=== PATIENT | female | born 1985 | race Caucasian/White ===

== ENCOUNTER 2018-05-21 20:24 | Emergency (ER) | payer MEDICAID, SELFPAY ==
[2018-05-21 20:25] VITALS: BP 119/74; PULSE 80; RESP 15; TEMP 36.9; O2SAT 98; BMI 19.7
--- NOTE | 2018-05-21 20:38 | CT_ITS ---
STUDY: CT ABDOMEN AND PELVIS WITHOUT CONTRAST REASON FOR EXAM: Female, 32 years old. Left flank and abdominal pain x2 days RADIATION DOSAGE (If Supplied By Facility): CTDIvol = ( 6.04 ) mGy, DLP = ( 282.37 ) mGycm TECHNIQUE: Transaxial images were obtained from the dome of the diaphragm to the symphysis pubis without oral contrast, and without intravenous contrast. Sagittal and coronal images were reconstructed. Individualized dose optimization techniques were used for this CT. COMPARISON: None. FINDINGS: The visualized lung bases are unremarkable. The visualized portions of the heart are within normal limits. Normal liver. There are surgical clips in the gallbladder fossa consistent with a prior cholecystectomy. Normal spleen. Normal pancreas. Normal bilateral adrenal glands. Normal right kidney. Normal left kidney. There is a large amount of fluid in the stomach. Normal small intestine. There is a moderate amount of colonic stool. There are surgical clips in the region of the appendix consistent with a prior appendectomy. Normal abdominal aorta. Normal inferior vena cava. Normal retroperitoneum. Normal urinary bladder. There is absence of the uterus consistent with a prior hysterectomy. There is a small umbilical hernia containing fat. Normal osseous structures. CT/Abdomen/Pelvis without Cont IMPRESSION: 1. Status post cholecystectomy. 2. Status post hysterectomy. 3. Status post appendectomy. 4. There is a large amount of fluid in the stomach and a moderate amount of colonic stool. 5. There is a small fat-containing umbilical hernia. 6. There is no evidence of nephro or ureterolithiasis, hydronephrosis, or hydroureter. 7. No free intra-abdominal or intrapelvic air, fluid, or inflammatory process is noted. Electronically Signed: Kishore Murphy MD at 22:25 EDT , Service support ,
[2018-05-21] MEDS: 0.9% Normal Saline 1,000 ML 100 ML IV (21:31)
[2018-05-21] MEDS: Ketorolac 15 MG/ML Vial IV (21:31)
[2018-05-21] MEDS: Ondansetron 4 MG/2 ML Vial IV (21:31)
[2018-05-21 21:35] LABS: Bacteria 0 SEEN /hpf (None Seen); Mucous, Urine 0 SEEN /hpf (<or=2+); Red Blood Cells-Urine 0 SEEN /hpf (0-5)
[2018-05-21 21:37] LABS: Color, Urine Yellow (Yellow); Glucose, Dipstick Normal (Normal); Ketone-Dipstick Negative (Negative); Leukocyte Esterase-Dipstick 25 /ul (Negative); Nitrite-Dipstick Negative (Negative); Occult Blood-Urine 10 /ul (Negative); Protein-Dipstick Negative (Negative); Urine Bilirubin Dipstick Negative (Negative); Urine Clarity Clear (Clear); Urine Urobilinogen Normal (Normal); Urine pH 6.5 (5.0 - 8.0)
[2018-05-21 21:40] LABS: Absolute Lymphocyte Count 3.62 X10^3/ul (0.83-4.51); Absolute Neutrophil Count 5.5 X10^3/uL (2.0-7.7); Basophil# 0.04 X10^3/uL; Basophil% 0.4 % (0-1); Eosinophil# 0.26 X10^3/uL; Eosinophils% 2.6 % (0-5); Hematocrit 36.8 % (37-47); Lymphocyte # 3.62 X10^3/ul (4.0); Lymphocyte % 36.4 % (19-41); Mean Corp Hgb Conc 32.6 g/gl (32-36); Mean Corpuscular Hgb 30.6 pg (27.0-32.0); Mean Corpuscular Volume 93.9 fL (81-99); Mean Platelet Vol. 9.4 fl (6.2-12.0); Monocyte# 0.55 X10^3/uL; Monocyte% 5.5 % (0-10); Neutrophil # 5.47 X10^3/uL (2.7-7.7); POSITIVE COUNT NO; POSITIVE DIFFERENTIAL NO; POSITIVE MORPHOLOGY NO; Platelet Count 273 K/mm3 (150-450); RBC Distribution Width CV 13.4 % (11.6-14.6); RBC Distribution Width SD 45.6 fl (35.1-43.9); Red Blood Count 3.92 M/mm3 (4.2-5.4)
[2018-05-21 21:48] LABS: Anion Gap 5 (5-15); BUN 12 mg/dL (7-18); BUN/Creat Ratio 13.5 RATIO (10-20); Calcium,Total 8.6 mg/dL (8.5-10.1); Chloride 107 mmol/L (98-107); Creatinine, Serum 0.89 mg/dL (0.55-1.02); EST Glomerular Filtration Rate 78 mL/min (>60); Est Glom Filt Rate - Afr Amer 94 mL/min (>60); Estimated Creatinine Clearance 65.18 ml/min; Glucose 89 mg/dL (74-106); Potassium 3.8 mmol/L (3.5-5.1); Sodium Level 140 mmol/L (136-145)
[2018-05-21 21:50] LABS: Squamous Epithelial Cells - UA 0-5 SEEN /hpf (5-10); White Blood Cells 0-5 SEEN /hpf (0-5)
--- NOTE | 2018-05-21 22:06 | ED.VISSUMM ---
- ER Visit Summary Date of Service: 05/21/18 Chief Complaint: Flank pain History of Present Illness: The patient is a 32 F with a 2 day history of left lower back pain wrapping into the left groin line. She denies dysuria. She has had no vaginal discharge. She does report mild diarrhea. She has no known history of diverticulitis. Patient has had prior complete hysterectomy. Physical Examination: Vital signs are unremarkable. Patient sitting upright in bed no acute distress. Head neck examination is normal. Heart is regular rate and rhythm. Lung sounds are clear. Abdomen is soft with tenderness in the left lower quadrant. There is no guarding or rebound. Hypoactive bowel sounds are noted. Back examination was no true CVA tenderness. She does have reproducible tenderness in the left low lumbar paraspinals. No skin rash or lesion are noted. Test Results: CBC and chemistry studies are unremarkable. Urinalysis shows 0-[address] flank reveals large fluid in the stomach and moderate colonic stool. No acute findings are evidence of inflammation noted. No evidence of kidney stone. Emergency Department Course and Treatment: Patient was treated with Toradol, Zofran, and IV fluids. On repeat evaluation patient is resting comfortable. Should be treated with Naprosyn and MiraLAX. She is to monitor her symptoms and return for worsening. Treatment Plan: [] Disposition: Discharge Impression: Abdominal pain, uncertain etiology This note was generated with [employer] dictation software. It may contain incorrect words, spelling, and punctuation that were not noted in review of the chart prior to signing ED Disposition - Plan for ED Patient: Chief Complaint: Flank Pain Referrals: Gen Muller MD [Primary Care Provider] -
--- NOTE | 2018-05-21 22:38 | ED.DEP ---
ED Disposition - Plan for ED Patient: Disposition: Home or Assisted Living Chief Complaint: Flank Pain Instructions: ED Abdominal Pain Unkn Cause Prescriptions: Polyethylene Glycol 3350 [Miralax] 17 gm PO DAILY PRN #30 packet PRN Reason: Constipation Naproxen [Naprosyn] 250 mg PO BID PRN #20 tablet PRN Reason: Pain Referrals: Gen Muller MD [Primary Care Provider] -
[2018-05-21 22:41] VITALS: BP 113/58; PULSE 72; RESP 12; O2SAT 99
== END 2018-05-21 22:43 | disposition home or self-care (01) ==
PROVIDERS: Emergency Provider Emergency Medicine; Family Provider Orthopaedic Surgery; PCP Orthopaedic Surgery
DX: R10.32 Left lower quadrant pain (principal); Z90.49 Acquired absence of other specified parts of digestive tract; Z90.710 Acquired absence of both cervix and uterus; Z72.0 Tobacco use
CPT/HCPCS: 74176; 80048; 81001; 85025; 96361; 96374; 96375; 99284; J7030; A4216; J2405